=== PATIENT | female | born 1945 | race Caucasian/White ===

== ENCOUNTER 2020-06-30 08:14 | Outpatient (RCR) | payer MEDICARE, SELFPAY | END 2020-08-18 16:26 | disposition home or self-care (01) | LOC: HO.WCC 08:14 | PROVIDERS: PCP Internal Medicine; Visit Provider Physician Assistant Surgical | DX: E11.622 Type 2 diabetes mellitus with other skin ulcer (principal); L97.912 Non-pressure chronic ulcer of unspecified part of right lower leg with fat layer exposed | CPT/HCPCS: 11042; 99212 ==

== ENCOUNTER 2024-09-10 09:18 | Outpatient (AMB) | payer MEDICARE, SELFPAY ==
--- OUTSIDE RECORDS SUMMARY | 2024-09-10 09:22 | XMS_ITS | Continuity of Care Document ---
Author Organization [facility] Address [address] [place] [id number] Care Team Providers Care Solution Mixer Name Role Phone Sheridan ROMAN, Mona Primary Care Physician [place] [facility] [place]): 07/30/24 - 08/29/24 [facility] [address] [id number] Attending Physician: Jovany Chávez Admitting Physician: AdmtrJovany Referring Physician: Admtr, [id number] Encounter Type: Triage Allergies, Adverse Reactions, Alerts Substance Criticality Severity Reaction Reaction Severity Status lisinopril Cough Active sulfa drugs Rash Active Adhesive Bandage rash,redness Active Immunizations Given and Recorded Vaccine Date Status Refusal Reason SARS-CoV-2(COVID-19)mRNA-LNP vac([id number]) 09/29/23 Recorded influenza virus vaccine, inactivated 07/18/23 Quintin rded influenza virus vaccine, inactivated 07/22/22 Quintin rded influenza virus vaccine, inactivated 07/20/21 Quintin rded influenza virus vaccine, inactivated 1, 2 06/05/18 Recorded influenza virus vaccine, inactivated 3 08/03/17 Re corded influenza virus vaccine, inactivated 07/07/17 Quintin rded influenza virus vaccine, inactivated 4 06/25/16 Re corded [id number] 12y+ bivalent booster vax 07/27/22 Recorded SARS-CoV-2 (COVID-19) mRNA BNT-162b2 vac 11/27/20 Recorded SARS-CoV-2 (COVID-19) mRNA BNT-162b2 vac 11/06/20 Recorded Influenza Virus Vaccine (oldterm) 06/25/20 Recorde d tetanus/diphtheria/pertussis, acel(Tdap) 04/01/20 Given tetanus/diphtheria/pertussis, acel(Tdap) 12/19/13 Given pneumococcal 13-valent vaccine 12/19/14 Given Pneumococcal Poly (PPV23) (oldterm) 05/25/07 Given diphtheria-tetanus toxoids (DT) 11/04/98 Given 1Location History: Pharmacy 2Result Comment: [07/12/2018] High Dose 3Location History: Employer 4Location History: works at [employer] amLODIPine 5 mg oral tablet See Instructions, TAKE 1 TABLET BY MOUTH EVERY DAY, # 90 tablet, 1 Refills, Maintenance, 07/08/24 3:48:00 PM EDT, [id number], 157.5, cm, 07/06/24 14:49:00 EDT, Height, 95.4, kg, 02/28/24 18:54:00 EDT, Dry Weight Start Date: 07/08/24 Status: Ordered Quantity: 90.0 Unit: tablet Repeat number: 1 CPAP Machine CPAP Machine, See Instructions, # 1 each, Refills 0, Tot. Refills 0, Maintenance, Nasal CPAP at 19 cm of water pressure, compliance data aquisition. Use nightly for obstructive sleep apnea. DX: JUAN JOSÉ Length of need: Lifetime, 06/02/21 1:15:00 PM EDT, Compound Start Date: 06/02/21 Status: Ordered Quantity: 1.0 Unit: each Repeat number: 1 Indication: Obstructive sleep apnea (adult) (pediatric) Ecotrin 325 mg oral delayed release tablet 1 tablet = 325 mg, By Mouth, 2 times a day, # 60 tablet, 0 Refills, Maintenance, 08/03/24 10:18:00 AM EST, [facility], Partial fill upon patient request if the prescription is for a schedule II opioid drug. Start Date: 08/03/24 Stop Date: 09/02/24 Status: Ordered Quantity: 60.0 Unit: tablet Repeat number: 1 estradiol 0.1 mg/g vaginal cream See Instructions, USE 1 GRAMS VAGINALLY EVERY MONDAY AND MONDAY, # 42.5 Gm, 4 Refills, Maintenance, 12/01/23 10:13:00 AM EST, [id number], 152.9, cm, 07/17/23 14:38:00 EDT, Height, 94.5, kg, 07/12/23 14:16:00 EDT, Dry Weight Start Date: 12/01/23 Status: Ordered Quantity: 42.5 Unit: g Repeat number: 1 Insulin Lispro KwikPen 100 units/mL injectable solution 2-4 units, Subcutaneous Injection, 3 times a day before meals, # 7.5 mL, 6 Refills, Maintenance, 11/24/21 2:30:00 PM EST, Injection, [facility], Partial fill upon patient request if the prescription is for a schedule II opioid drug., 153, cm, 08/20/21 11:16:00 EST, Height Start Date: 11/24/21 Status: Ordered Quantity: 7.5 Unit: mL Repeat number: 7 Lantus Solostar Pen 100 units/mL subcutaneous solution = 25 units, 0 Refills, Maintenance, 06/02/22 9:24:00 AM EDT, Partial fill upon patient request if theprescription is for a schedule II opioid drug. Start Date: 06/02/22 Status: Ordered Repeat number: 1 LORazepam 0.5 mg oral tablet 1 tablet = 0.5 mg, By Mouth, Daily, PRN as needed for anxiety, # 30 tablet, 1 Refills, Maintenance,08/09/23 10:04:00 PM EST, [facility]/pharmacy #[id number], Partial fill upon patient request if the prescriptionis for a schedule II opioid drug., 152.9, cm, 07/17/23 14:38:00 EDT, Height, 94.5, kg, 07/12/23 14:16:00 EDT, Dry Weight Start Date: 08/09/23 Status: Ordered Quantity: 30.0 Unit: tablet Repeat number: 2 oxyCODONE 5 mg oral tablet 5 mg, 1, tablet, By Mouth, 2 times a day, PRN, for 7 days, # 14 tablet, Refills 0, Tot. Refills 0, Acute 09/02/24 11:14:00 PM EST, Pain , Moderate, 08/26/24 11:14:00 PM EST, Route to Pharmacy Electronically, [facility]/pharmacy #[id number], Partial fill upon patient request if the prescription is for a schedule II opioid drug., 158, cm, 08/26/24 8:58:00 EST, Height, 95.4, kg, 08/02/24 17:29:00 EST, Dry Weight Start Date: 08/26/24 Stop Date: 09/02/24 Status: Ordered Quantity: 14.0 Unit: tablet Repeat number: 1 torsemide 20 mg oral tablet 1 tablet = 20 mg, By Mouth, Daily, # 30 tablet, 11 Refills, Maintenance, 07/03/24 2:59:00 PM EDT, Tablet, [facility]/pharmacy #[id number], Partial fill upon patient request if the prescription is for a schedule IIopioid drug., 157.5, cm, 07/03/24 14:14:00 EDT, Height, 95.4, kg, 02/28/24 18:54:00 EDT, Dry Weight Start Date: 07/03/24 Status: Ordered Quantity: 30.0 Unit: tablet Repeat number: 12 Vitamin D3 2000 intl units oral tablet 1 tablet = 2,000 International_Units, By Mouth, Daily, 0 Refills, Maintenance, 02/12/21 7:30:00 AM EDT, Partial fill upon patient request if the prescription is for a schedule II opioid drug. Start Date: 02/12/21 Status: Ordered Repeat number: 1 Problem List Condition Confirmation Course Effective Dates Status H ealth Status Informant Dyspnea on exertion Confirmed Active Hepatitis C Confirmed Active Hyperlipidemia associated with type 2 diabetes mellitus Confirmed Active Hypertension associated with type 2 diabetes mellitus Confirmed Active JUAN JOSÉ - Obstructive sleep apnea Confirmed 05/02/07 Active Preop cardiovascular exam Confirmed Active Pulmonary hypertension Confirmed Active Severe obesity (BMI 35.0-39.9) with comorbidity Confirmed Active Diabetes mellitus, type 2 Confirmed Active Social History Social History Type Response Smoking Status Former smoker, quit more than 30 days ago entered on: 07/30/24 Sex Sex Representation Female (finding) Patient Care team information Care Team Personnel Name: Rodney Lundberg RN Position: [facility] RN Member Role: Primary Care Nurse Name: Fidelina Perales RN Position: [facility] RN Member Role: Primary Care Nurse Name: Alison Andujar RN Position: [facility] RN Member Role: Primary Care Nurse Name: Maria Eugenia Amaral RN Position: [facility] RN Member Role: Primary Care Nurse Name: Dannie Stark RN Position: S RN Member Role: Primary Care Nurse Name: Alberto Bertrand RN Position: S RN Member Role: Primary Care Nurse Name: Casie Valera RN Position: [facility] RN Member Role: Primary Care Nurse Name: Antoinette Whitfield RN Position: [facility] RN Member Role: Primary Care Nurse Name: Mona Swartz MD Position: [facility] Physician - Primary Care Member Role: PCP Address: [address] [place] [id number] Telecom: Name: Kiley Borden RN Position: [facility] RN Member Role: Primary Care Nurse Name: Catia Collier RN Position: [facility] RN Member Role: Primary Care Nurse Care Team Related Persons Name: CYNTHIA LLANOS Insurance Providers Guarantor name: [facility] Plan Information #: 1 Payer: NA Member Number: NA Policy Number: NA Group Number: NA
--- OUTSIDE RECORDS SUMMARY | 2024-09-10 09:22 | XMS_ITS | Continuity of Care Document ---
Author Organization [facility] ter Address [address] [place] [id number]- Care Team Providers Care Manager Language Name Role Phone Sheridna ROMAN, Mona [facility] Care [id number]): [facility]/24 - 08/13/[address] [address] Attending Physician: Rodney Rushing MD Admitting Physician: Rodney Rushing MD Encounter Type: Preadmit Daystay Allergies, Adverse Reactions, Alerts Substance Criticality Severity Reaction Reaction Severity Status lisinopril Cough Active sulfa drugs Rash Active Adhesive Bandage rash,redness Active Immunizations Given and Recorded Vaccine Date Status Refusal Reason SARS-CoV-2(COVID-19)mRNA-LNP vac([id number]) 09/29/23 Recorded influenza virus vaccine, inactivated 07/18/23 Quintin rded influenza virus vaccine, inactivated 07/22/22 Quintin rded influenza virus vaccine, inactivated 07/20/21 Quintin rded influenza virus vaccine, inactivated 1, 2 06/05/18 Recorded influenza virus vaccine, inactivated 3 08/03/17 Re corded influenza virus vaccine, inactivated 07/07/17 Quintin rded influenza virus vaccine, inactivated 4 06/25/16 Re corded [id number] 12y+ bivalent booster vax 07/27/22 Recorded SARS-CoV-2 [...] 3Location History: Employer 4Location History: works at [employer] Medications acetaminophen 325 mg oral tablet 650 mg, By Mouth, Every 6 hours, May take OTC not to exceed 3000 mg/day, Refills 0, Maintenance, 08/03/24 10:24:00 AM EST, Partial fill upon patient request if the prescription is for a schedule II opioid drug. Start Date: 08/03/24 Status: Ordered Repeat number: 1 albuterol CFC free 90 mcg/inh inhalation aerosol 2, puffs, Inhalation, Every 4 hours, PRN, # 18 Gm, Refills 1, Tot. Refills 1, Maintenance, 02/29/24 1:50:00 PM EDT, Aerosol, Route to Pharmacy Electronically, [id number], [facility]/pharmacy #[id number], 157.5, cm, 02/29/24 12:30:00 EDT, Height, 95.4, kg, 02/28/24 18:54:00 EDT, Dry Weight Start Date: 02/29/24 Status: Ordered Quantity: 18.0 Unit: g Repeat number: 2 amLODIPine 5 mg oral tablet See Instructions, TAKE 1 TABLET BY MOUTH EVERY DAY, # 90 tablet, 1 Refills, Maintenance, 07/08/24 3:48:00 PM EDT, [facility], 157.5, cm, 07/06/24 14:49:00 EDT, Height, 95.4, [...] 1 Indication: Obstructive sleep apnea (adult) (pediatric) docusate sodium 100 mg oral capsule 100 mg, 1, capsule, By Mouth, 2 times a day, # 60 capsule, Refills 0, Tot. Refills 0, Maintenance, 08/03/24 10:19:00 AM EST, Print Requisition, Partial fill upon patient request if the prescription isfor a schedule II opioid drug. Start Date: 08/03/24 Status: Ordered Quantity: 60.0 Unit: capsule Repeat number: 1 Ecotrin 325 mg oral delayed release tablet [...] 4 Refills, Maintenance, 12/01/23 10:13:00 AM EST, [facility], 152.9, cm, 07/17/23 14:38:00 EDT, Height, 94.5, kg, 07/12/23 14:16:00 EDT, Dry Weight Start Date: 12/01/23 Status: Ordered Quantity: 42.5 Unit: g Repeat number: 1 fluticasone 50 mcg/inh nasal spray 1 sprays = 50 mcg, Nares, Both, 2 times a day, shake well before using Use saline spray or Kendra Pot first, # 1 each, 0 Refills, Maintenance, 07/06/24 3:24:00 PM EDT, [place], [facility]/pharmacy #[id number], Partial fill upon patient request if the prescription is for a schedule II opioid drug., 1 sprays Nares, Both 2 times a day,x14 days,Instr:shake well before using; Use saline spray or Kendra Pot first, 157.5, cm, 07/06/24 14:49:00 EDT, Height, 95.4, kg, 02/28/24 18:54:00 EDT, Dry Weight Start Date: 07/06/24 Stop Date: 07/20/24 Status: Ordered Quantity: 1.0 Unit: each Repeat number: 1 hydrochlorothiazide-triamterene 25 mg-37.5 mg oral capsule 1 capsule, By Mouth, Daily, # 90 capsule, 3 Refills, Maintenance, 01/10/24 10:52:00 AM EDT, [facility]/pharmacy #[id number], 90, 1 capsule By Mouth Daily, 152.9, cm, 07/17/23 14:38:00 EDT, Height, 94.5, kg, 07/12/23 14:16:00 EDT, Dry Weight Start Date: 01/10/24 Status: Ordered Quantity: 90.0 Unit: capsule Repeat number: 4 Insulin Lispro KwikPen 100 units/mL injectable solution [...] tablet, 1 Refills, Maintenance,08/09/23 10:04:00 PM EST, [facility]/pharmacy #[id number], Partial fill upon patient request if the prescriptionis for a schedule II opioid drug., 152.9, cm, 07/17/23 14:38:00 EDT, Height, 94.5, kg, 07/12/23 14:16:00 EDT, Dry Weight Start Date: 08/09/23 Status: Ordered Quantity: 30.0 Unit: tablet Repeat number: 2 meloxicam 15 mg oral tablet 1 tablet = 15 mg, By Mouth, Daily, # 30 tablet, 0 Refills, Maintenance, 08/03/24 10:22:00 AM EST, Tablet, Partial fill upon patient request if the prescription is for a schedule II opioid drug. Start Date: 08/03/24 Status: Ordered Quantity: 30.0 Unit: tablet Repeat number: 1 MiraLax Powder 1 pack/packet = 17 Gm, By Mouth, Daily, PRN Constipation, 0 Refills, Maintenance, 08/03/24 10:24:00 AM EST, Powder, Partial fill upon patient request if the prescription is for a schedule II opioid drug. Start Date: 08/03/24 Status: Ordered Repeat number: 1 Motrin Tablet 600 mg, By Mouth, 3 times a day, PRN, Refills 0, Maintenance, Pain , Mild, 04/02/20 1:19:00 PM EDT Start Date: 04/02/20 Status: Ordered Repeat number: 1 pantoprazole 40 mg oral delayed release tablet = 40 mg, By Mouth, Daily, # 30 tablet, 0 Refills, Maintenance, 08/03/24 10:19:00 AM EST, EC Tablet Start Date: 08/03/24 Stop Date: 09/02/24 Status: Ordered Quantity: 30.0 Unit: tablet Repeat number: 1 Saline Mist 0.65% nasal spray 2 sprays, Nares, Both, 2 times a day, PRN Nasal Congestion, Use before Flonase, # 2 each, 0 Refills, Maintenance, 07/06/24 3:24:00 PM EDT, [facility]/pharmacy #[id number], label in Filipino, 2 sprays Nares, Both 2times a day,x14 days,PRN:Nasal Congestion,Instr:Use before Flonase, 157.5, cm, 07/06/24 14:49:00 EDT, Height, 95.4, kg, 02/28/24 18:54:00 EDT, Dry Weight Start Date: 07/06/24 Stop Date: 07/20/24 Status: Ordered Quantity: 2.0 Unit: each Repeat number: 1 senna 187 mg oral tablet 1 tablet = 8.6 mg, By Mouth, Daily at bedtime, PRN as needed for constipation, 0 Refills, Maintenance, 08/03/24 10:24:00 AM EST, Tablet, Partial fill upon patient request if the prescription is for a schedule II opioid drug. Start Date: 08/03/24 Status: Ordered Repeat number: 1 torsemide 20 mg oral tablet 1 tablet = 20 mg, By Mouth, Daily, # 30 tablet, 11 Refills, Maintenance, 07/03/24 2:59:00 PM EDT, Tablet, [facility]/pharmacy #0488, Partial fill upon patient request if the prescription is for a schedule IIopioid drug., 157.5, cm, 07/03/24 14:14:00 EDT, Height, 95.4, kg, 02/28/24 18:54:00 EDT, Dry Weight Start Date: 07/03/24 Status: Ordered Quantity: 30.0 Unit: tablet Repeat number: 12 TRAMADOL HCL 50 MG TABLET TRAMADOL HCL 50 MG TABLET, 1 tab, Every 4 hours, 0 Refills, Maintenance, 07/11/24 8:48:00 AM EDT Start Date: 07/11/24 Status: Ordered Repeat number: 1 Vitamin D3 2000 intl units oral tablet [...] Active Diabetes mellitus, type 2 Confirmed Active Vital Signs Most recent to oldest [Reference Range]: 1 Height 157.5 cm (06/18/24 10:16 AM) Weight 97.1 kg (06/18/24 10:16 AM) Body Mass Index [18.5-24.99 kg/m2] 39.14 kg/m2 *>HHI* (06/18/24 10:16 AM) Social History Social History Type Response Smoking Status Former smoker, quit more than 30 days ago entered on: 07/30/24 Sex Sex Representation Female (finding) History and physical note * Event Display: History and Physical Hospital Authored Date: [id number] * Ish CHOWDARY, Paul: MODIFY Event Display: History and Physical Hospital Authored Date: [id number] SURGICAL HISTORY AND PHYSICAL DATE: 07/16/2024 PRIMARY DIAGNOSIS: Osteoarthritis of the right hip. REASON FOR ADMISSION: The patient is being admitted for right total hip arthroplasty with Dr. Rushing on 07/16/2024. HISTORY OF PRESENT ILLNESS: The patient is a 78-year-old female presenting today with right sided hip pain. Her pain has been going on for several years and has been getting progressively worse. She had a previous left total hip arthroplasty done with Dr. Rushing in 2007, as well as right total kneearthroplasty with Dr. Rushing in 2003, both of which did well. The patient states that she has lost a lot of mobility due to his right hip pain. She has been ambulating with a walker at all times. Shehas been taking Tylenol in order to manage her symptoms unfortunately with diminishing relief. She states that she is now ready for right total hip arthroplasty with Dr. Rushing on 07/16/2024. PAST MEDICAL HISTORY: 1. Osteoarthritis of the right hip. 2. Obesity with BMI of 42.4. 3. Hypertension. 4. Diabetes type 2, with preoperative A1c 6.8. 5. Dyspnea on exertion. 6. Obstructive sleep apnea. 7. History of hepatitis C. 8. Pulmonary hypertension. 9. Heart murmur 11/28. 10. Resting tremor, particularly noted on her right lower extremity. 11. Hyperlipidemia. PAST SURGICAL HISTORY: 1. Bilateral blepharoplasty in 2013. 2. Cholecystectomy in 2008. 3. Hysterectomy. 4. L5 diskectomy. 5. Laminectomy. 6. Left total hip arthroplasty with Dr. Rushing in 2007. 7. Right total knee arthroplasty with Dr. Rushing in 2003. CURRENT MEDICATION LIST: 1. Amlodipine 5 mg daily in the morning. 2. Triamterene/hydrochlorothiazide 37.5/25 mg daily in the morning. 3. Torsemide 20 mg daily in the morning. 4. Ipratropium nasal spray. 5. Humalog 10-12 units before meals, sliding scale. 6. Lantus 23-24 units daily at bedtime. 7. Albuterol sulfate inhaler, which the patient does not use. 8. Estrogen vaginal cream weekly. ALLERGIES: THE PATIENT HAS ALLERGIES TO SULFA MEDICATIONS, AND LISINOPRIL. SOCIAL HISTORY: The patient is and lives at home alone. She will have support of her son postoperatively. 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 She reports occasional use of alcoholic beverages. She denies any use of tobacco products or illicit drug use. PHYSICIANS: Her primary care provider is Dr. Swartz and her supervisor jewelry department is Dr. Flores and her supervisor polishing is Dr. Woodward. REVIEW OF SYSTEMS: Negative with exception of HPI. PHYSICAL EXAMINATION: VITAL SIGNS: Weight 220 pounds. GENERAL: The patient is alert and oriented. Normal insight, affect, and grooming. HEENT: Normocephalic. Conjunctivae pink. Sclerae are anicteric. SKIN: Intact without rash or lesions. Nails without clubbing or cyanosis. NECK: Supple. Trachea midline. No lymphadenopathy. CHEST: Lungs are clear to auscultation bilaterally. Breathing is unlabored. CARDIOVASCULAR: Heart has a regular rate and rhythm with normal S1 and S2. Grade 3/6 systolic murmur best heard at the right upper sternal border without radiation. No JVD. Carotid pulses without bruits. PULMONARY: Lungs are clear to auscultation bilaterally. Breathing is unlabored. GI: Abdomen is soft and nontender, with normal bowel sounds. No hepatosplenomegaly or masses noted.No bruits appreciated. EXTREMITIES: The patient has negative straight leg raise test bilaterally. Bilateral knees with full range of motion with no pain, no crepitus. Right hip has very limited and painful range of motion with pain referred to the groin. Motor sensation screening is intact. Calves supple and nontender. Ankle motion is satisfactory. Pedal pulse palpable bilaterally. Skin on her feet is intact. PREOPERATIVE DIAGNOSTIC DATA: EKG reads sinus rhythm with first-degree AV block at 85 beats per minute, cannot rule out anterior infarct. Stress test that was done on 07/04/2024 showed that the myocardial perfusion imaging is abnormal. There is partially reversible defect, small in size, mild in intensity, involving the mid anterolateral and apical lateral lozano. Findings can be seen with david-ischemic changes. LV function is normal at rest and stress, with normal wall motion and thickening. Orthopedic x-rays demonstrate end-stage osteoarthritis of the right hip. There is ddnt-ec-inzh articulation, subchondral sclerosis and osteophyte formation. LABORATORY DATA: CBC shows ____ level of 47.5. Chemistry panel demonstrates glucose of 137. LFTs show alkaline phosphatase of 136. Coagulation studies within normal limits. A1c 6.8. ASSESSMENT AND PLAN: The patient has advanced osteoarthritis of the right hip and is now scheduled for right total hip arthroplasty with Dr. Rushing on 07/16/2024. The patient was seen by the medical consultative preoperative clinic, who deferred her cardiopulmonary assessment to her supervisor jewelry department and supervisor polishing. They stated that the patient is at low risk for delirium and elevated risk for falls. The patient was seen by her supervisor jewelry department who stated that the patient is at moderate risk for perioperative complications from anesthesia standpoint due to her underlying comorbidities, body habitus and pulmonary hypertension. They recommended to proceed with spinal anesthesia instead of general anesthesia for the anticipated right hip arthroplasty. They recommended considering intraoperative invasive monitoring with at least an arterial line and preferably central line with avoidance of foodboluses for hypotension and hemodynamic compromise and considering vasopressor support during the procedure, if needed products to consider immediate diuresis, if needed to proceed before general anesthesia and it was difficult to do spinal, would be great to avoid with rapid sequence intubation propofol or any agents that cause systemic hypotension, she will likely then require an admission to [facility] for postoperative monitoring, if not critical care monitoring after that. The patient was seen by her supervisor polishing who stated that the patient should not be prohibited from having her surgery. She has agreed with cardiovascular risk of 0.77% of cardiovascular complications postoperatively. The patient will receive intravenous tranexamic acid. She will be on aspirin postoperatively for DVT prophylaxis. She will not receive any Celebrex and will receive meloxicam instead due to her allergies. We will monitor her point of cares and order sliding scale insulin. We will monitor her end-tidal CO2 and O2 levels and utilize CPAP postoperatively. The patient wishes to try Dilaudid and tramadol for pain as it worked for her in the past. Discharge plans will be to rehabilitation per patient's request. The patient has been counseled regarding the risks and benefits of proposed surgery. Her questions have been answered and she acknowledges understanding. The patient wished to proceed with surgery. No prescriptions were given to her at this office visit. The patient will require prescriptions foraspirin, meloxicam, pantoprazole, Colace, and pain medications filled at [facility] prior to discharge. CONTACTS: Her son, Bart, with a cell phone number [phone]. Dictated by: Paul Deng N.P. Signing Clinician: Rodney Rushing M.D. Dictated: 07/12/2024 12:56:05 Transcribed: 08:57:16 AM Transcribed by: [facility] DocID: [id number] PRELIMINARY REPORT UNLESS MANUALLY/ELECTRONICALLY SIGNED Patient Care team information Care Team Personnel Name: Rodney Lundberg RN Position: [facility] RN Member Role: Primary Care Nurse Name: Fidelina Perales RN Position: S RN Member Role: Primary Care Nurse Name: Alison Andujar RN Position: S RN Member Role: Primary Care Nurse Name: Maria Eugenia Amaral RN Position: [facility] SN RN Member Role: Primary Care Nurse Name: Dannie Stark RN Position: S RN Member Role: Primary Care Nurse Name: Alberto Bertrand RN Position: S RN Member Role: Primary Care Nurse Name: Casie Valera RN Position: [facility] RN Member Role: Primary Care Nurse Name: Antoinette Whitfield RN Position: S RN Member Role: Primary Care Nurse Name: Mona Swartz MD Position: [facility] Physician - Primary Care Member Role: PCP Address: [address] [place] [address] Telecom: Name: Kiley Borden RN Position: S RN Member Role: Primary Care Nurse Name: Catia Collier RN Position: S RN Member Role: Primary Care Nurse Care Team Related Persons Name: BART LLANOS Insurance Providers Guarantor name: MORENITA HADDAD Health Plan Information #: 1 Payer: NA Member Number: [id number] Policy Number: NA Group Number: [id number] Health Plan Information #: 2 Payer: NA Member Number: [id number] Policy Number: NA Group Number: NA
--- OUTSIDE RECORDS SUMMARY | 2024-09-10 09:23 | XMS_ITS ---
Author Organization [facility], Address [address] [place] [address] Care Team Providers Care Collection Support Specialist Name Role Phone Andrea Macias Unavailable ALLERGIES, ADVERSE REACTIONS, ALERTS Substance Code Code System Type Reaction Severity Status Start Date End Date Sulfa (Sulfonamide Antibiotics) RxNorm Drug allergy () 0 Sulfa (Sulfonamide Antibiotics) Unknown Drug allergy () 1 MEDICATIONS Medication Code Code System Start Date Stop Date Route Dosage Directions Fill Instructions hydrochlorothiazide RxNorm 05/05/20 22 aspirin RxNorm 05/05/20 22 Dexcom G6 Transmitter RxNorm 0 22 Zithromax Z-George 080188 RxNorm 05/05/20 22 2021 oral 2 Lantus U-100 Insulin RxNorm 05/05/20 22 amlodipine besylate RxNorm triamterene/hydrochlo rothiazide RxNorm amoxicillin 665134 RxNorm 06/15/20 24 oral 1 losartan potassium RxNorm amoxicillin-pot clavulanate 703510 RxNorm 06/14/20 24 oral 1 Senna Plus RxNorm 05/05/20 22 PROBLEMS Problem Name Code Code System Start Date End Date Stat Diabetes, Type 2 74601486 [facility] 05/05/2022 [facility] Hypertension 80177352 [facility] 05/05/2022 Active Sinusitis, acute 33753728 [facility] 05/05/2022 Act [facility] Acute sinusitis, unspecified 85470472 [facility] 06/14/2024 Active ENCOUNTERS Encounter Diagnosis Code Code System Date Stat Acute sinusitis, unspecified 46567972 [facility] 06/14/20 24 Active IMMUNIZATIONS * None VITAL SIGNS Code Code System Vitals Name Date Value and Un its 8462-4 [facility] Blood Pressure-Diastolic 06/14/2024 82 mmHg 8480-6 [facility] Blood Pressure-Systolic 06/14/2024 1 45 mmHg 8867-4 [facility] Heart Rate 06/14/2024 88 /min 9279-1 [facility] Respiratory Rate 06/14/2024 18 /min 8310-5 [facility] Body Temperature 06/14/2024 97.3 F 66951-0 [facility] Oxygen Saturation 06/14/2024 93 % SOCIAL HISTORY * None PROCEDURES * None MEDICAL EQUIPMENT * Patient has no history of implantable devices ASSESSMENT * None TREATMENT PLAN Type Description Date MEDICATION Take 875-125 mg tablet 06/14/2024 MEDICATION Take 875 mg tablet 06/15/2024 APPOINTMENT Please follow up as directed with ENT/PCP for Reviewed current sinus symptoms. 06/14/2024 Lab Tests None GOALS * None HEALTH CONCERNS * No Health Concerns FUNCTIONAL AND COGNITIVE STATUS * None CONSULTATION NOTES * None DISCHARGE SUMMARY NOTES * None HISTORY AND PHYSICAL NOTES * Reason for visit - Illness IMAGING NOTES * None LABORATORY REPORT NARRATIVE NOTES * None PATHOLOGY REPORT NARRATIVE NOTES * None PROGRESS NOTES * None
--- OUTSIDE RECORDS SUMMARY | 2024-09-10 09:23 | XMS_ITS | Continuity of Care Document ---
Author Organization [facility] Adult Address [address] [place] [address]- Care Team Providers Care Bulk Sealer Name Role Phone Sheridan ROMAN, Mona [id number]): [facility] - 09/02/24 [facility] [address] [place] [address]- Encounter Diagnosis Right shoulder pain(Discharge Diagnosis) - 08/26/24 Attending Physician: Mona Swartz MD Encounter Type: Office Visit Allergies, Adverse Reactions, Alerts Substance Criticality Severity Reaction Reaction Severity Status lisinopril Cough Active sulfa drugs Rash Active Adhesive Bandage rash,redness Active Immunizations Given and Recorded Vaccine Date Status Refusal Reason SARS-CoV-2(COVID-19)mRNA-LNP vac([id number]) 09/29/23 Recorded influenza virus vaccine, inactivated 07/18/23 Quintin rded influenza virus vaccine, inactivated 07/22/22 Quintin rded influenza virus vaccine, inactivated 07/20/21 Quintin rded influenza virus vaccine, inactivated 1, 2 06/05/18 Recorded influenza virus vaccine, inactivated 3 08/03/17 Re corded influenza virus vaccine, inactivated 07/07/17 Quintin rded influenza virus vaccine, inactivated 4 06/25/16 Re corded [id number] 12y+ bivalent booster vax 07/27/22 Recorded SARS-CoV-2 [...] 3Location History: Employer 4Location History: works at [employer] Medications amLODIPine 5 mg oral tablet See Instructions, TAKE 1 TABLET BY MOUTH EVERY DAY, # 90 tablet, 1 Refills, Maintenance, 07/08/24 3:48:00 PM EDT, [facility], 157.5, cm, 07/06/24 14:49:00 EDT, Height, 95.4, [...] 4 Refills, Maintenance, 12/01/23 10:13:00 AM EST, [facility], 152.9, cm, 07/17/23 14:38:00 EDT, Height, 94.5, [...] tablet, 1 Refills, Maintenance,08/09/23 10:04:00 PM EST, [facility]/pharmacy #[id number], Partial fill upon patient request if the prescriptionis for a schedule II opioid drug., 152.9, cm, 07/17/23 14:38:00 EDT, Height, 94.5, kg, 07/12/23 14:16:00 EDT, Dry Weight Start Date: 08/09/23 Status: Ordered Quantity: 30.0 Unit: tablet Repeat number: 2 torsemide 20 mg oral tablet 1 tablet = 20 mg, By Mouth, Daily, # 30 tablet, 11 Refills, Maintenance, 07/03/24 2:59:00 PM EDT, Tablet, [facility]/pharmacy #[id number], Partial fill upon patient [...] Active Diabetes mellitus, type 2 Confirmed Active Diagnosis Diagnosis Type Effective Dates Health Status Cl inical Service Informant Right shoulder pain Discharge Diagnosis 08/26/24 Vital Signs Most recent to oldest [Reference Range]: 1 Height 158 cm (08/26/24 8:58 AM) Weight Obtained Via Patient/family state d (08/26/24 8:58 AM) Social History Social History Type Response Smoking Status Former smoker, quit more than 30 days ago entered on: 07/30/24 Sex Sex Representation Female (finding) Patient Care team information Care Team Personnel Name: Rodney Lundberg RN Position: [facility] RN Member Role: Primary Care Nurse Name: Fidelina Perales RN Position: [facility] RN Member Role: Primary Care Nurse Name: Alison Andujar RN Position: [facility] RN Member Role: Primary Care Nurse Name: Maria Eugenia Amaral RN Position: [facility] SN RN Member Role: Primary Care Nurse Name: Dannie Stark RN Position: [facility] RN Member Role: Primary Care Nurse Name: Alberto Bertrand RN Position: [facility] RN Member Role: Primary Care Nurse Name: Casie Valera RN Position: [facility] RN Member Role: Primary Care Nurse Name: Antoinette Whitfield RN Position: [facility] RN Member Role: Primary Care Nurse Name: Mona Swartz MD Position: [facility] Physician - Primary Care Member Role: PCP Address: [address] [place] [address] [address] [place] [address]- Telecom: Name: Kiley Borden RN Position: [facility] RN Member Role: Primary Care Nurse Name: Catia Collier RN Position: [facility] RN Member Role: Primary Care Nurse Care Team Related Persons Name: CYNTHIA LLANOS Insurance Providers Guarantor name: MORENITA HADDAD [facility] Information #: 1 Payer: NA Member Number: [id number] Policy Number: FIGUEROA Group Number: [id number] Health Plan Information #: 2 Payer: NA Member Number: [id number] Policy Number: NA Group Number: NA
--- OUTSIDE RECORDS SUMMARY | 2024-09-10 09:23 | XMS_ITS | Continuity of Care Document ---
Author Organization [facility] Address [address] [address]- Care Team Providers Care Riding Silks Custodian Name Role Phone Sheridan ROMAN, Mona Primary Care Physician Encounter [facility] Date(s): 07/23/24 - 08/22/24 [facility] [address] [id number] Encounter Type: Triage Allergies, Adverse Reactions, Alerts Substance Criticality Severity Reaction Reaction Severity Status lisinopril Cough Active sulfa drugs Rash Active Adhesive Bandage rash,redness Active Immunizations Given and Recorded Vaccine Date Status Refusal Reason SARS-CoV-2(COVID-19)mRNA-LNP vac([id number]) 09/29/23 Recorded influenza virus vaccine, inactivated 07/18/23 Quintin rded influenza virus vaccine, inactivated 07/22/22 Quintin rded influenza virus vaccine, inactivated 07/20/21 Quintin rded influenza virus vaccine, inactivated 1, 2 06/05/18 Recorded influenza virus vaccine, inactivated 3 08/03/17 Re corded influenza virus vaccine, inactivated 07/07/17 Quintin rded influenza virus vaccine, inactivated 4 06/25/16 Re corded [id number] 12y+ bivalent booster vax 07/27/22 Recorded SARS-CoV-2 [...] 3Location History: Employer 4Location History: works at [employer] Medications acetaminophen 325 mg oral tablet 650 [...] PM EDT, Aerosol, Route to Pharmacy Electronically, [id number], [facility]/pharmacy #[id number], 157.5, cm, 02/29/24 12:30:00 EDT, Height, 95.4, kg, 02/28/24 18:54:00 EDT, Dry Weight Start Date: 02/29/24 Status: Ordered Quantity: 18.0 Unit: g Repeat number: 2 amLODIPine 5 mg oral tablet See Instructions, TAKE 1 TABLET BY MOUTH EVERY DAY, # 90 tablet, 1 Refills, Maintenance, 07/08/24 3:48:00 PM EDT, [id number], 157.5, cm, 07/06/24 14:49:00 EDT, Height, 95.4, [...] 4 Refills, Maintenance, 12/01/23 10:13:00 AM EST, [facility] [id number], 152.9, cm, 07/17/23 14:38:00 EDT, Height, 94.5, kg, 07/12/23 14:16:00 EDT, Dry Weight Start Date: 12/01/23 Status: Ordered Quantity: 42.5 Unit: g Repeat number: 1 fluticasone 50 mcg/inh nasal spray 1 sprays = 50 mcg, Nares, Both, 2 times a day, shake well before using Use saline spray or Kendra Pot first, # 1 each, 0 Refills, Maintenance, 07/06/24 3:24:00 PM EDT, [place], [facility]/pharmacy #[id number], Partial fill upon patient request if [...] 3 Refills, Maintenance, 01/10/24 10:52:00 AM EDT, [facility]/pharmacy #[id number], 90, 1 capsule By Mouth Daily, [...] tablet, 1 Refills, Maintenance,08/09/23 10:04:00 PM EST, [facility]/pharmacy #[id number], Partial fill upon patient request if [...] 0 Refills, Maintenance, 07/06/24 3:24:00 PM EDT, [facility]/pharmacy #[id number], label in Portuguese, 2 sprays Nares, Both 2times a day,x14 [...] Refills, Maintenance, 07/03/24 2:59:00 PM EDT, [place], [facility]/pharmacy #[id number], Partial fill upon patient request if [...] Team Personnel Name: Rodney Lundberg RN Position: [facility] RN Member Role: Primary Care Nurse Name: Fidelina Perales RN Position: S RN Member Role: Primary Care Nurse Name: Alison Andujar RN Position: S RN Member Role: Primary Care Nurse Name: Maria Eugenia Amaral RN Position: [facility] RN Member Role: Primary Care Nurse Name: Dannie Stark RN Position: [facility] RN Member Role: Primary Care Nurse Name: Alberto Bertrand RN Position: [facility] RN Member Role: Primary Care Nurse Name: Casie Valera RN Position: [facility] RN Member Role: Primary Care Nurse Name: Antoinette Whitfield RN Position: [facility] RN Member Role: Primary Care Nurse Name: Mona Swartz MD Position: [facility] Physician - Primary Care Member Role: PCP Address: [address] [place] [id number] Telecom: Name: Kiley Borden RN Position: [facility] RN Member Role: Primary Care Nurse Name: Catia Collier RN Position: [facility] RN Member Role: Primary Care Nurse Care Team Related Persons Name: CYNTHIA LLANOS Insurance Providers Guarantor name: [facility] Information #: 1 Payer: NA Member Number: NA Policy Number: NA Group Number: NA
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
[2024-09-10 09:27] VITALS: BP 142/90; PULSE 94; O2SAT 94; BMI 38.8
== END 2024-09-10 10:15 | disposition home or self-care (01) ==
PROVIDERS: PCP Internal Medicine; Visit Provider Psychiatry & Neurology Neurology
DX: G25.2 Other specified forms of tremor (principal); G47.33 Obstructive sleep apnea (adult) (pediatric)
CPT/HCPCS: 99204; G2211

== ENCOUNTER → 2024-09-10 09:18 | Outpatient (BNVA) | payer MEDICARE, SELFPAY | PROVIDERS: PCP Internal Medicine; Visit Provider Psychiatry & Neurology Neurology | DX: R25.2 Cramp and spasm (principal); G47.33 Obstructive sleep apnea (adult) (pediatric) | CPT/HCPCS: 99202 ==

== ENCOUNTER 2025-01-30 11:01 | Outpatient (AMB) | payer MEDICARE, SELFPAY ==
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
[2025-01-30 11:04] VITALS: BP 140/70; BMI 41.0
== END 2025-01-30 11:38 | disposition home or self-care (01) ==
LOC: HO.HSMS 11:02
PROVIDERS: PCP Internal Medicine; Visit Provider Psychiatry & Neurology Neurology
DX: G25.2 Other specified forms of tremor (principal); G47.33 Obstructive sleep apnea (adult) (pediatric); M25.551 Pain in right hip; G89.29 Other chronic pain
CPT/HCPCS: 99214; G2211

== ENCOUNTER → 2025-01-30 11:01 | Outpatient (BNVA) | payer MEDICARE, SELFPAY | PROVIDERS: PCP Internal Medicine; Visit Provider Psychiatry & Neurology Neurology | DX: G25.2 Other specified forms of tremor (principal); G47.33 Obstructive sleep apnea (adult) (pediatric); G89.29 Other chronic pain; M25.551 Pain in right hip | CPT/HCPCS: 99212 ==

== ENCOUNTER 2025-05-05 12:55 | Outpatient (AMB) | payer MEDICARE, SELFPAY ==
--- OUTSIDE RECORDS SUMMARY | 2025-05-01 | XMS_ITS ---
Author Organization [facility], Address [address] [place] [address] Care Team Providers Care Garbage Stoker Name Role Phone Nusrat Alejandro Unavailable [phone] ALLERGIES, ADVERSE REACTIONS, ALERTS Substance Code Code System Type Reaction Severity Status Start Date End Date Augmentin 417207 RxNorm Drug allergy () mild intolerance 0 Sulfa (Sulfonamide Antibiotics) RxNorm Drug allergy () 0 Sulfa (Sulfonamide Antibiotics) Unknown Drug allergy () 1 lisinopril 85412 RxNorm Drug allergy () 0 MEDICATIONS Medication Code Code System Start Date Stop Date Route Dosage Directions Fill Instructions hydrochlorothiazide RxNorm 05/05/20 22 aspirin RxNorm 05/05/20 22 Dexcom G6 Transmitter RxNorm 0 22 Zithromax Z-George 000429 RxNorm 05/05/20 22 2021 oral 2 Lantus U-100 Insulin RxNorm 05/05/20 22 amlodipine besylate RxNorm triamterene/hydrochlo rothiazide RxNorm amoxicillin 128930 RxNorm 06/15/20 24 oral 1 losartan potassium RxNorm losartan potassium RxNorm doxycycline hyclate RxNorm 04/12/20 25 1 amoxicillin-pot clavulanate 757249 RxNorm 06/14/20 24 oral 1 amoxicillin/potassium clavulanate RxNorm 04/12/20 25 1 Senna Plus RxNorm 05/05/20 22 ciprofloxacin-dexamet hasone 646287 RxNorm 04/21/20 25 otic (ear) 4 Lantus Solostar U-100 Insulin RxNorm Humalog KwikPen Insulin RxNorm 03/06/20 25 10-12 Mounjaro RxNorm Dexcom G7 Sensor RxNorm Bárbara 2nd Gen Pen Needle RxNorm PROBLEMS Problem Name Code Code System Start Date End Date Stat us Diabetes, Type 2 89159538 [facility] 05/05/2022 Act chuck Hypertension 28786422 [facility] 05/05/2022 Active Sinusitis, acute 98343400 [facility] 05/05/2022 Act chuck Acute sinusitis, unspecified 88401752 [facility] 06/14/2024 Inactive Impacted cerumen, right ear 5629673730609688 [facility] 2024 Active Unspecified otitis externa, right ear 3023717 [facility] 04/21/2025 Active Otalgia, right ear 2294587145407111 [facility] 05/01/2025 Active ENCOUNTERS Encounter Diagnosis Code Code System Date Stat us Otalgia, right ear 9248590833057627 [facility] 05/01/2025 Active IMMUNIZATIONS * None VITAL SIGNS Code Code System Vitals Name Date Value and Un its 8462-4 [facility] Blood Pressure-Diastolic 05/01/2025 90 mmHg 8480-6 [facility] Blood Pressure-Systolic 05/01/2025 1 50 mmHg 8867-4 [facility] Heart Rate 05/01/2025 95 /min 9279-1 [facility] Respiratory Rate 05/01/2025 16 /min 8310-5 [facility] Body Temperature 05/01/2025 97.1 F 75588-0 [facility] Oxygen Saturation 05/01/2025 95 % SOCIAL HISTORY * None PROCEDURES Code Code System Procedure Date Status Notes 74486 Cpt4 Cerumen Removal 05/01/2025 completed Lisa Syper - 05/01/2025 Risks and benefits of procedure and alternatives discussed, and patient verbalized understanding and consent. Lavage/irrigation performed for cerumen removal of right ear. Irrigated with tap water. cerumen completely removed, Patient tolerated procedure well. Patient left room ambulating without difficulty. MEDICAL EQUIPMENT * Patient has no history of implantable devices ASSESSMENT Assessment Call the ENT providers liste d in this packet for follow-up appointment.Try legj-uta-pkumfae antihistamine such as Claritin, Zyrtec or Elisa to see if that helps your ear and sinus pain TREATMENT PLAN Type Description Date APPOINTMENT If not feeling fatmata r in 3 day(s), please see your primary care physician. If you do not have a primary care physician, please return to this clinic. 05/01/2025 Lab Tests None GOALS * None HEALTH CONCERNS * No Health Concerns FUNCTIONAL AND COGNITIVE STATUS * None CONSULTATION NOTES * Sandra Egan - 05/01/2025 Referral: ENTReferred To: [facility] [address] [place] [id number]: F: schedule: To be scheduled within 7 days.Insurance: [facility] [employer] (HMO)MemberID: [id number]: IncompleteNotes:* Comments: Several weeks of right ear pain. Yellow discoloration seen mixed behind the TM. Concern for possible cholesteatoma Ordered 05/01/2025 02:31 PM by Lyle Infante Edited 05/01/2025 02:31 PM by Amalia Infantetronically Signed by Sandra Egan PA-C on 05/01/2025 02:31 PM DISCHARGE SUMMARY NOTES * None HISTORY AND PHYSICAL NOTES * Patient: MORENITA HADDAD, Sex: F (ID# [id number]) Date of : 1945 (79 years) Visit on 05/01/2025 (Log# [id number]) Historian: Self Triage Notes: pt comes in for continued R sided ear discomfort and new onset L ear discomfort. Pt reports feelingmore discomfort within her sinuses than she did prior. History of Present Illness: Complaint: The patient presents with a chief complaint of f/u 04/21. Context - Initial History: Patient reports persistent right ear pain for a few weeks. She was seen here on the and had her ear flushed and was given eardrops. This did help to improve symptoms for a few days but then it returned. Previous to that she was on a course of doxycycline and she states for a few days she did feel better but then symptoms returned again. Review of Systems: The patient complains of the following recent symptoms: Constitutional: chills fatigue ENT and Mouth: ear pain The patient denies the following recent symptoms: Constitutional: denies fever Allergies: Sulfa (Sulfonamide Antibiotics): Drug allergy. lisinopril: Drug allergy. Augmentin: Drug allergy. Mild intolerance, aches/pain/bone pain. Medications: amlodipine besylate: amlodipine besylate 5 mg tablet; Total Qty: 90 (ninety) Tablet; 0 refill(s); RAF; triamterene/hydrochlorothiazide: triamterene/hydrochlorothiazide 37.5-25 mg capsule; Total Qty: 90 (ninety) Capsule; 0 refill(s); RAF; losartan potassium: losartan potassium 25 mg tablet; Total Qty: 90 (ninety) Tablet; 0 refill(s); RAF; doxycycline hyclate: doxycycline hyclate 100 mg tablet; TAKE 1 TABLET TAKE 1 TABLET BY MOUTH TWICE A DAY FOR 10 DAYS; Total Qty: 20 (twenty) Each; 0 refill(s); RAF; amoxicillin/potassium clavulanate: amoxicillin/potassium clavulanate 875-125 mg tablet; TAKE 1 TABLET TAKE 1 TABLET BY MOUTH EVERY 12 HOURS FOR 10 DAYS; Total Qty: 20 (twenty) Each; 0 refill(s); RAF; ciprofloxacin-dexamethasone: ciprofloxacin-dexamethasone 0.3-0.1 % drops, suspension; Take 4 drops (otic (ear) - left) 2 times per day for 7 days; Total Qty: 3 (three) milliliter; 0 refill(s); Substitutions allowed; Earliest Fill Date: 04/21/2025 Lantus Solostar U-100 Insulin: Lantus Solostar U-100 Insulin 100 unit/mL (3 mL) Insulin Pen; Total Qty: 30 (thirty) Milliliter; 0 refill(s); RAF; Humalog KwikPen Insulin: Humalog KwikPen Insulin 200 unit/mL (3 mL) Insulin Pen; INJECT 10-12 UNITSINJECT 10-12 UNITS SUBCUTANEOUSLY 3 TIMES A DAY BEFORE MEALS; Total Qty: 3 (three) Milliliter; 0 refill(s); RAF; Mounjaro: Mounjaro 12.5 mg/0.5 mL Pen Injector; Total Qty: 2 (two) Milliliter; 0 refill(s); RAF; Dexcom G7 Sensor: Dexcom G7 Sensor Each; Total Qty: 3 (three) Each; 0 refill(s); RAF; Bárbara 2nd Gen Pen Needle: Bárbara 2nd Gen Pen Needle 32 gauge x 5/32 Needle; Total Qty: 500 (five hundred ) Each; 0 refill(s); RAF; Problem List: Diabetes, Type 2 (status Active) Hypertension (status Active) Sinusitis, acute (status Active) Impacted cerumen, right ear (status Active) Unspecified otitis externa, right ear (status Active) Surgeries: Bone/Joint surgery: joint replacement, of rt knee, lt hip, rt hip. Vitals: 01:44 PM (05/01/2025)Temperature: 97.1 ?F (Tympanic [R]), Pulse: 95 BPM, BP: 150/90 ( Arm [R] ), Method: Manual, Respirations: 16/min, O2 Saturation: 95%, O2 Delivery: RAFirst entered 05/01/2025 13:44 by Nusrat Alejandro Physical Exam: The following exam elements were documented to be abnormal: ENT: abnormality of tympanic membrane(s) noted. Appears to be a yellow chunk of wax adherent to the right eardrum. The following exam elements were documented to be normal: ENT: ear pinnae and external nose without tenderness, deformity or lesion bilaterally. ENT: external ear canal normal bilaterally. Eyes: conjunctivae anicteric and non-injected bilaterally. General: well developed, well nourished, and in no apparent distress. Lymph: no cervical lymphadenopathy. Psychiatric: oriented and alert. Respiratory: no increased work of breathing. Procedures and Supplies: Cerumen RemovalRisks and benefits of procedure and alternatives discussed, and patient verbalized understanding and consent. Lavage/irrigation performed for cerumen removal of right ear. Irrigated with tap water. cerumen completely removed, Patient tolerated procedure well. Patient left room ambulating without difficulty. Code(s): 89152-TS Ordered 05/01/2025 13:46 by Sandra Egan Completed 05/01/2025 14:28 by Lisa Corral Diagnoses: Otalgia, right ear (H92.01) Discharge Instructions: Earache, Adult Plan: If not feeling better in 3 day(s), please see your primary care physician. If you do not have a primary care physician, please return to this clinic. Call the ENT providers listed in this packet for follow-up appointment. Try lwfz-hss-jmxitbu antihistamine such as Claritin, Zyrtec or Elisa to see if that helps your ear and sinus pain Medical Decision Making Notes: Patient's right ear was irrigated. Once the piece of wax removed there was still a yellow discoloration seen behind the TM.I am concerned patient could possibly have a cholesteatoma causing her chronic ear pain. I will refer to ENT. Referrals: Referral: ENT Referred To: [facility] [address] [place] [address] T: F: Schedule: To be scheduled within 7 days. Insurance: [facility] [employer] (HMO) MemberID: [id number] Preauthorization: Incomplete Notes: Comments: Several weeks of right ear pain. Yellow discoloration seen mixed behind the TM. Concern for possible cholesteatoma Ordered 05/01/2025 02:31 PM by Sandra Egan PA-C Last Edited 05/01/2025 02:31 PM by Sandra Egan PA-C Visit discharged at 05/01/2025 2:32:00 PM by Sandra Egan PA-C Signed electronically by Sandra Egan PA-C on 05/01/2025 2:32:00 PM IMAGING NOTES * None LABORATORY REPORT NARRATIVE NOTES * None PATHOLOGY REPORT NARRATIVE NOTES * None PROGRESS NOTES * None
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
[2025-05-05 13:01] VITALS: BP 138/82; PULSE 94; O2SAT 95; BMI 39.3
== END 2025-05-05 13:52 | disposition home or self-care (01) ==
LOC: HO.HSMS 12:56
PROVIDERS: PCP Internal Medicine; Visit Provider Psychiatry & Neurology Neurology
DX: G25.2 Other specified forms of tremor (principal); G47.33 Obstructive sleep apnea (adult) (pediatric); M25.551 Pain in right hip; G89.29 Other chronic pain
CPT/HCPCS: 99214; G2211

== ENCOUNTER → 2025-05-05 12:55 | Outpatient (BNVA) | payer MEDICARE, SELFPAY | PROVIDERS: PCP Internal Medicine; Visit Provider Psychiatry & Neurology Neurology | DX: G47.33 Obstructive sleep apnea (adult) (pediatric) (principal); G25.2 Other specified forms of tremor; M25.551 Pain in right hip; G89.29 Other chronic pain; Z99.89 Dependence on other enabling machines and devices | CPT/HCPCS: 99212 ==